=== PATIENT | female | born 1975 | race Hispanic/Latino ===

== ENCOUNTER → 2016-08-24 | Outpatient (CLI) | payer BC ==
[~2016-08-24] MED LIST: HUM100IN2 SC; HUM100VI SQ; HYDR-3754 PO; IBUP-788 PO; PREN-93 PO
[2016-08-24 16:48] LABS: ALBUMIN 4.4 g/dL (3.4-5.0); TOTAL PROTEIN 7.4 g/dL (6.4-8.5)
== END ==
LOC: LAB 16:16
PROVIDERS: ATTEND Dermatology
DX: B35.1 Tinea unguium (principal); Z79.899 Other long term (current) drug therapy
CPT/HCPCS: 36415; 80076